=== PATIENT | female | born 1965 | race Caucasian/White ===

== ENCOUNTER 2016-12-07 06:07 | Day surgery (SDC) | payer BC, OTHER ==
[~2016-12-07 06:07] MED LIST: Lactated Ringers 1,000 ML IV SCH
[2016-12-07] MEDS ORDERED: Lactated Ringers 1,000 ML IV ONE (07:38)
[2016-12-07] MEDS ORDERED: DIPRIVAN 200 MG/20 ML IV ONE (08:00)
[2016-12-07] MEDS ORDERED: Versed 2 MG/2 ML Injection IV ONE (08:00)
[2016-12-07] MEDS ORDERED: SUBLIMAZE 100 MCG/2 ML IV ONE (08:00)
[2016-12-07 08:44] VITALS: BP 115/79; PULSE 63; O2SAT 98
--- NOTE | 2016-12-07 08:48 | OP ---
SURGERY DATE/TIME: 12/07/2016 0655 PREOPERATIVE DIAGNOSES: 1) Elevated sedimentation rate. 2) Elevated CRP level. POSTOPERATIVE DIAGNOSIS: Small polyp in the transverse colon. PROCEDURE: Colonoscopy with biopsy. SURGEON: Dr. Haile. ANESTHESIA: MAC. Medications given by anesthesia department. HISTORY: The patient is a 51 year-old white female who presents now for colonoscopic evaluation. The patient was felt the need to have the evaluation due to elevation in her sedimentation rate and CRP level which have been unexplained thus far. The patient is nearly 52 and due for a screening colonoscopy soon anyway. The patient was appraised of the risks of the procedure including the risk of perforation, phlebitis, untoward reaction to medication, bleeding, and missed lesions. The patient verbalized her understanding and desired to have the procedure performed. DESCRIPTION OF PROCEDURE: The patient was given the medications by the anesthesia department. She had continuous pulse oximetry, ECG monitoring, intermittent blood pressure monitoring, and tidal CO2 monitoring during the examination. She was placed in the left lateral decubitus position. A digital rectal examination was performed and revealed normal anal sphincter tone and no masses. The flexible Olympus pediatric colonoscope was used to intubate the rectum. A view of the colon was developed sequentially to the ascending colon. We were unable completely evaluate the cecum due to technical difficulties. Upon insertion and withdrawal there was noted a small polyp in the transverse colon which was biopsied twice with cold biopsy forceps to rule out any adenomatous change. No additional mucosal lesions were encountered. The scope was removed from the patient who tolerated the procedure well and was sent back to OP recovery in good condition. The prep was noted to be fair.
== END 2016-12-07 08:48 | disposition home or self-care (01) ==
LOC: SDC 06:07
PROVIDERS: ATTEND Family Medicine
PROC: 0DBL8ZX Excision of Transverse Colon, Via Natural or Artificial Opening Endoscopic, Diagnostic (ICD-10-PCS; principal; 2016-12-07)
DX: R70.0 Elevated erythrocyte sedimentation rate (principal); R79.82 Elevated C-reactive protein (CRP); D12.3 Benign neoplasm of transverse colon; I10 Essential (primary) hypertension; K21.9 Gastro-esophageal reflux disease without esophagitis
CPT/HCPCS: 00810; 36415; 88305; J2250; J2704; J3010

== ENCOUNTER 2020-02-15 15:49 | Emergency (ER) | payer MEDICARE ==
--- NOTE | 2020-02-15 15:58 | ERPHSYRPT ---
- History of Present Illness Time Seen by Provider: 02/15/20 15:58 Source: patient, family Exam Limitations: no limitations Physician History: This is a 55-year-old obese female with coronary artery disease and presents with 2-day history of coughing. She has been treated with an antibiotic and steroid as an outpatient 1 week ago followed by a change in her antibiotics and more steroids. Patient has albuterol nebulizer treatments at home. A chest x- ray was performed 5 days ago. Patient was on the impression she had a pneumonia but the x-ray was read by radiology and it is not a definite pneumonia. It was read as could not be excluded. Patient symptomatically has not improved despite the antibiotics and steroid treatments. Is allergic to iodinated contrast media. Patient first was treated with cefdinir and secondly she completed treatment with Augmentin. Timing/Duration: week(s) (2) Activities at Onset: none Severity of Dyspnea-Max: moderate Severity of Dyspnea-Current: moderate Possible Cause: occasional episodes Modifying Factors: Improves With: coughing Associated Symptoms: cough, No chest pain/discomfort Allergies/Adverse Reactions: acetaminophen [From Vicodin] Allergy (Verified 02/15/20 15:55) hydrocodone [From Vicodin] Allergy (Verified 02/15/20 15:55) Iodinated Contrast Media [Iodinated Contrast Media - IV Dye] Allergy (Verified 02/15/20 15:55) orphenadrine [From Norflex] Allergy (Verified 02/15/20 15:55) tramadol Allergy (Verified 02/15/20 15:55) Home Medications: Aspirin 81 mg PO DAILY 11/07/16 [History] Duloxetine HCl [Cymbalta] 120 mg PO DAILY 11/07/16 [History] Metoprolol Tartrate 50 mg PO BID 11/07/16 [History] Pantoprazole Sodium [Protonix] 40 mg PO DAILY 11/07/16 [History] Bupropion HCl [Bupropion Xl] 300 mg PO DAILY 02/15/20 [History] Buspirone HCl [Buspar] 15 mg PO BID 02/15/20 [History] Metformin HCl Xr 500 mg [Glucophage XR 500 MG] 500 mg PO BID 02/15/20 [ History] Tizanidine HCl 4 mg [Zanaflex 4 MG] 4 mg PO DAILY 02/15/20 [History] clonazePAM [Clonazepam] 1 mg PO BID 02/15/20 [History] Hx Tetanus, Diphtheria Vaccination/Date Given: No Hx Influenza Vaccination/Date Given: No Hx Pneumococcal Vaccination/Date Given: No - Review of Systems Constitutional: No Symptoms Eyes: No Symptoms Ears, Nose, & Throat: No Symptoms Respiratory: Cough, Dyspnea, No Stridor, No Wheezing Cardiac: No Symptoms Abdominal/Gastrointestinal: No Symptoms Genitourinary Symptoms: No Symptoms Musculoskeletal: No Symptoms Skin: No Symptoms Neurological: No Symptoms Psychological: No Symptoms Endocrine: No Symptoms Hematologic/Lymphatic: No Symptoms Immunological/Allergic: No Symptoms All Other Systems: Reviewed and Negative - Past Medical History Pertinent Past Medical History: Yes Neurological History: No Pertinent History ENT History: Other Cardiac History: High Cholesterol Respiratory History: No Pertinent History Endocrine Medical History: Diabetes Type II Musculoskeletal History: Arthritis GI Medical History: GERD History: No Pertinent History Psycho-Social History: Anxiety, Depression Female Reproductive Disorders: No Pertinent History Other Medical History: L carpal tunnel - Past Surgical History Past Surgical History: Yes Neuro Surgical History: No Pertinent History Cardiac: Other Respiratory: No Pertinent History Gastrointestinal: Cholecystectomy, Other Genitourinary: Other Musculoskeletal: No Pertinent History Female Surgical History: Lumpectomy Other Surgical History: pt states she has had an ablation to her heart for an arrhythmia, pt did not know what kind, but states it has fixed the problem., and a thermal ablation. she has had ureter surgery ( she states it was to narrow ). - Social History Smoking Status: Never smoker Exposure to second hand smoke: No Drug Use: none Patient Lives Alone: No - Nursing Vital Signs Nursing Vital Signs: Initial Vital Signs Temperature 98.1 F 02/15/20 15:56 Pulse Rate 81 02/15/20 15:56 Respiratory Rate 18 02/15/20 15:56 Blood Pressure 100/60 02/15/20 15:56 O2 Sat by Pulse Oximetry 96 02/15/20 15:56 Pain Scale Pain Intensity 0 - Physical Exam General Appearance: mild distress, alert, anxiety, obese Eye Exam: PERRL/EOMI, No eyes nml inspection Ears, Nose, Throat Exam: hearing grossly normal, normal ENT inspection Neck Exam: normal inspection, non-tender, supple, full range of motion Respiratory Exam: normal breath sounds, lungs clear, airway intact, No chest tenderness, No respiratory distress Cardiovascular/Chest Exam: normal heart sounds, regular rate/rhythm Abdominal/Gastrointestinal Exam: soft, normal bowel sounds, No tenderness Rectal Exam: not done Extremity Exam: non-tender, normal range of motion, normal inspection Neurologic Exam: alert, oriented x 3, cooperative, airport operations coordinator II-XII nml as tested Skin Exam: normal color, warm, dry Lymphatic Exam: No adenopathy SpO2 Interpretation: normal O2 Delivery: Room Air - Course Nursing assessment & vital signs reviewed: Yes Ordered Tests: Active Orders 24 hr Category Date Time Status Ethanol Quality Leader STAT Care 02/15/20 16:27 Active EKG-ER Only STAT Care 02/15/20 16:26 Active IV Insertion STAT Care 02/15/20 16:26 Active Pulse Oximetry (ED) STAT Care 02/15/20 16:26 Active CHEST 1 VIEW (PORTABLE) Stat Exams 02/15/20 16:27 Completed CBC W DIFF Stat Lab 02/15/20 16:45 Completed CMP Stat Lab 02/15/20 16:45 Completed D-DIMER QUANTITATIVE Stat Lab 02/15/20 17:25 Completed Lactic Acid Stat Lab 02/15/20 16:57 Completed Manual Differential NC Stat Lab 02/15/20 16:45 Completed NT PRO BNP Stat Lab 02/15/20 16:45 Completed TROPONIN Q3H Lab 02/15/20 16:45 Completed TROPONIN Q3H Lab 02/15/20 19:30 Ordered TROPONIN Q3H Lab 02/15/20 22:30 Ordered TROPONIN Q3H Lab 02/16/20 01:30 Ordered TROPONIN Q3H Lab 02/16/20 04:30 Ordered Peak Expiratory Flow Rate ONCE RT 02/15/20 16:48 Active Respiratory Therapy Assessment DAILY RT 02/15/20 16:48 Active Medication Summary Generic Name Dose Route Start Last Admin Trade Name Freq PRN Reason Stop Dose Admin Levofloxacin/Dextrose 500 mg in 100 mls @ 100 mls/hr 02/15/20 18:10 Levofloxacin 500mg/100ml D5w IV 02/15/20 19:09 STAT STA Discontinued Medications Generic Name Dose Route Start Last Admin Trade Name Freq PRN Reason Stop Dose Admin Hydrocodone Bitart/Acetaminophen 10 ml 02/15/20 18:12 Hydrocodone-Acetamin 2.5-108/5 Ml Solution PO 02/15/20 18:13 STAT STA Albuterol Sulfate 2.5 mg 02/15/20 16:26 02/15/20 16:42 Proventil 2.5 Mg/3 Ml Neb IH 02/15/20 16:27 2.5 mg STAT ONE Administration Albuterol Sulfate Confirm 02/15/20 16:40 Proventil 2.5 Mg/3 Ml Neb Administered 02/15/20 16:41 Dose 2.5 mg IH .STK-MED ONE Fluconazole 150 mg 02/15/20 18:11 Diflucan 100 Mg PO 02/15/20 18:12 ONCE ONE Methylprednisolone Sodium Succinate 125 mg 02/15/20 16:26 02/15/20 16:35 Solu-Medrol 125 Mg IV 02/15/20 16:27 125 mg STAT ONE Administration Methylprednisolone Sodium Succinate Confirm 02/15/20 16:34 Solu-Medrol 125 Mg Administered 02/15/20 16:35 Dose 125 mg .ROUTE .STK-MED ONE Lab/Rad Data: Laboratory Result Diagrams 02/15/20 16:45 02/15/20 16:45 Laboratory Results 02/15/20 02/15/20 02/15/20 Range/Units 17:25 16:57 16:45 WBC (4.0-10.5) K/mm3 RBC (4.1-5.4) M/mm3 Hgb (12.0-16.0) gm/dl Hct (35-47) % MCV (78-100) fl MCH (26-32) pg MCHC (32-36) g/dl RDW (11.5-14.0) % Plt Count (150-450) K/mm3 MPV (7.5-11.0) fl D-Dimer 358 (215-500) ng/mL Sodium (137-145) mmol/L Potassium (3.5-5.1) mmol/L Chloride (98-107) mmol/L Carbon Dioxide (22-30) mmol/L Anion Gap (5-15) MEQ/L BUN (7-17) mg/dL Creatinine (0.52-1.04) mg/dL Estimated GFR ML/MIN Glucose (74-106) mg/dL Lactic Acid 1.9 (0.4-2.0) Calcium (8.4-10.2) mg/dL Total Bilirubin (0.2-1.3) mg/dL AST (14-36) U/L ALT (0-35) U/L Alkaline Phosphatase (38-126) U/L Troponin I (0.000-0.034) ng/mL NT-Pro-B Natriuret Pep (0-900) pg/mL Serum Total Protein (6.3-8.2) g/dL Albumin (3.5-5.0) g/dL Influenza Type A Ag NEGATIVE (NEGATIVE) Influenza Type B Ag NEGATIVE (NEGATIVE) RSV (PCR) NEGATIVE (Negative) 02/15/20 02/15/20 02/15/20 Range/Units 16:45 16:45 16:45 WBC 18.7 H (4.0-10.5) K/mm3 RBC 5.14 (4.1-5.4) M/mm3 Hgb 13.8 (12.0-16.0) gm/dl Hct 42.7 (35-47) % MCV 83.1 (78-100) fl MCH 26.8 (26-32) pg MCHC 32.3 (32-36) g/dl RDW 15.7 H (11.5-14.0) % Plt Count 379 (150-450) K/mm3 MPV 9.5 (7.5-11.0) fl D-Dimer (215-500) ng/mL Sodium 142 (137-145) mmol/L Potassium 4.7 (3.5-5.1) mmol/L Chloride 102 (98-107) mmol/L Carbon Dioxide 30 (22-30) mmol/L Anion Gap 13.9 (5-15) MEQ/L BUN 24 H (7-17) mg/dL Creatinine 1.07 H (0.52-1.04) mg/dL Estimated GFR 57.0 ML/MIN Glucose 132 H (74-106) mg/dL Lactic Acid (0.4-2.0) Calcium 9.2 (8.4-10.2) mg/dL Total Bilirubin 0.40 (0.2-1.3) mg/dL AST 22 (14-36) U/L ALT 21 (0-35) U/L Alkaline Phosphatase 108 (38-126) U/L Troponin I < 0.012 (0.000-0.034) ng/mL NT-Pro-B Natriuret Pep 46.0 (0-900) pg/mL Serum Total Protein 8.0 (6.3-8.2) g/dL Albumin 4.3 (3.5-5.0) g/dL Influenza Type A Ag (NEGATIVE) Influenza Type B Ag (NEGATIVE) RSV (PCR) (Negative) - Progress Progress: improved, re-examined Air Movement: good Progress Note: 02/15/20 18:15 Medical decision making: This patient states that her symptoms have improved. She states she has 1 day of Augmentin antibiotic left. Her chest x-ray does not show any acute infiltrate but a lingular atelectasis is present. She does have a elevated white count but this may be secondary to 2 weeks of steroid use. She is afebrile. Her lactic acid is normal. Patient's troponin, d-dimer and BNP are all within normal limits. Patient's viral screens are also negative. Our plan for her is to stop the Augmentin, changed to antibiotic of Levaquin. She is to continue her steroid as prescribed as well as her nebulizer treatments every 4 hours while awake at home. We will provide the patient with Diflucan here in the emergency department x1 dose. She will receive Lortab elixir. The patient is not allergic to acetaminophen nor is she allergic to hydrocodone. The hydrocodone makes her little jittery. It is not a true allergy. Patient will get a prescription for Levaquin for home and we will provide her a prescription for Lortab elixir at home. Blood Culture(s) Obtained: No Antibiotics given: Yes Counseled pt/family regarding: lab results, diagnosis, need for follow-up, rad results - Departure Departure Disposition: Home Clinical Impression: Bronchitis Condition: Stable Critical Care Time: No Referrals: KAYLYN REYNA [Primary Care Provider] - Additional Instructions: Plenty of fluids. Avoid smoke inhalation of any kind. Stop your Augmentin antibiotic. Continue your nebulizer treatments at home every 4 hours while awake. Follow-up with your primary care physician for further management. Return to the emergency department if your symptoms worsen Prescriptions: Hydrocodone Bit/Acetaminophen [Hydrocodone-Acetaminophen Soln] 10 ml PO Q6H # 120 ml Levofloxacin [Levaquin 500 MG Tablet] 500 mg PO DAILY #7 tablet
[2020-02-15] MEDS ORDERED: PROVENTIL 2.5 MG/3 ML NEB IH ONE ×2 (16:26→16:40)
[2020-02-15] MEDS ORDERED: solu-MEDROL 125 MG IV ONE (16:26)
[2020-02-15] MEDS ORDERED: solu-MEDROL 125 MG ONE (16:34)
--- NOTE | 2020-02-15 16:59 | XRAY ---
Indication: Short of breath. Pneumonia. Comparison: February 10, 2020. Portable chest now demonstrates minimal lingula discoid atelectasis. Remaining heart and lungs normal.
[2020-02-15 17:01] LABS: Hematocrit 42.7 % (35-47); Hemoglobin 13.8 gm/dl (12.0-16.0); Mean Cell Volume 83.1 fl (78-100); Mean Corpuscular Hemoglobin 26.8 pg (26-32); Mean Corpuscular Hgb Concent. 32.3 g/dl (32-36); Mean Platelet Volume 9.5 fl (7.5-11.0); Platelet Count 379 K/mm3 (150-450); Red Blood Count 5.14 M/mm3 (4.1-5.4); Red Cell Distribution Width 15.7 % (11.5-14.0); White Blood Count 18.7 K/mm3 (4.0-10.5)
[2020-02-15 17:23] LABS: INFLUENZA A NEGATIVE (NEGATIVE); INFLUENZA B NEGATIVE (NEGATIVE); RESPIRATORY SYNCTIAL VIRUS NEGATIVE (Negative)
[2020-02-15 17:43] LABS: ALBUMIN 4.3 g/dL (3.5-5.0); ANION GAP 13.9 MEQ/L (5-15); BILIRUBIN,TOTAL 0.4 mg/dL (0.2-1.3); Calcium 9.2 mg/dL (8.4-10.2); Creatinine 1 1.07 mg/dL (0.52-1.04); Potassium 4.7 mmol/L (3.5-5.1)
[2020-02-15] MEDS ORDERED: Levofloxacin 500MG/100ML D5W 500 MG/100 ML BAG IV STA (18:10)
[2020-02-15] MEDS ORDERED: Diflucan 100 MG PO ONE (18:11)
[2020-02-15] MEDS ORDERED: HYDROCODONE-ACETAMIN 2.5-108/5 ML SOLUTION PO STA (18:12)
[2020-02-15] MEDS ORDERED: Levofloxacin 500MG/100ML D5W 500 MG/100 ML BAG IV ONE (18:22)
[2020-02-15] MEDS ORDERED: HYDROCODONE-ACETAMIN 2.5-108/5 ML SOLUTION ONE (18:22)
[2020-02-15 19:23] VITALS: O2SAT 95
[2020-02-15 19:36] VITALS: BP 120/67; PULSE 72
[2020-02-15 19:56] LABS: Eosinophil 1 % (0.00-3.0); Lymphocytes 13 % (24-44); Monocyte 6 % (0.0-12.0); Neutrophils 80 % (36.0-66.0); Platelet Estimate NORMAL (NORMAL); Total Cells Counted 100
== END 2020-02-15 19:42 | disposition home or self-care (01) ==
LOC: ED 15:49
DX: J40 Bronchitis, not specified as acute or chronic (principal); I25.10 Atherosclerotic heart disease of native coronary artery without angina pectoris; R05 Cough; E78.00 Pure hypercholesterolemia, unspecified; E11.9 Type 2 diabetes mellitus without complications; Z79.899 Other long term (current) drug therapy; Z79.84 Long term (current) use of oral hypoglycemic drugs
CPT/HCPCS: 36000; 36415; 71045; 80053; 83605; 83880; 84484; 85025; 85379; 87631; 93005; 93041; 94150; 94640; 94760; 96360; 96365; 96374; 99284; J1956; J2930; J7609; A9270-GY

== ENCOUNTER 2020-05-24 14:07 | Emergency (ER) | payer MEDICARE ==
[2020-05-24] MEDS ORDERED: CORTISPORIN EAR DROPS 10 ML SUSPENSION OT STA (14:40)
--- NOTE | 2020-05-24 14:40 | ERPHSYRPT ---
- History of Present Illness Time Seen by Provider: 05/24/20 14:20 Source: patient Patient Subjective Stated Complaint: ear ache Triage Nursing Assessment: pt to ED c/o L earache x 1 week. was seen at PCP , given abx and steriod shot with no relief. rates 9/10 pain that radiatesdown and up ear with opening mouth. mild redness noted. denies drainage. states she normally wears hearing aids at home but could not today due to pain. Physician History: Patient is a 55-year-old female presents to our ED for evaluation of left ear pain. Patient has been experiencing ear pain for approximately 1 week. Patient is hearing impaired and requires hearing aids. Patient went to her primary care doctor's office on . Patient was prescribed Omnicef and prednisone. Patient has been taking medication as prescribed. In spite patient is still experiencing pain. Pain described as an ache that is primarily localized to the external ear. Pain is along the external ear canal. No mastoid tenderness. No nausea or vomiting. No diarrhea. No headache. No change in vision. Patient voices no other complaints at this time. Timing/Duration: week(s) (1), gradual onset Severity: moderate Modifying Factors: Improves With: nothing Associated Symptoms: No nausea, No vomiting Allergies/Adverse Reactions: acetaminophen [From Vicodin] Allergy (Verified 05/24/20 14:22) hydrocodone [From Vicodin] Allergy (Verified 05/24/20 14:22) Iodinated Contrast Media [Iodinated Contrast Media - IV Dye] Allergy (Verified 05/24/20 14:22) orphenadrine [From Norflex] Allergy (Verified 05/24/20 14:22) tramadol Allergy (Verified 05/24/20 14:22) Home Medications: Aspirin 81 mg PO DAILY 11/07/16 [History] Duloxetine HCl [Cymbalta] 120 mg PO DAILY 11/07/16 [History] Metoprolol Tartrate 50 mg PO BID 11/07/16 [History] Pantoprazole Sodium [Protonix] 40 mg PO DAILY 11/07/16 [History] Bupropion HCl [Bupropion Xl] 300 mg PO DAILY 02/15/20 [History] Tizanidine HCl 4 mg [Zanaflex 4 MG] 4 mg PO DAILY 02/15/20 [History] Cariprazine HCl [Vraylar] 1.5 mg PO DAILY 05/24/20 [History] Cefdinir 300 mg PO DAILY 05/24/20 [History] Diazepam 5 mg [Valium 5 MG] 5 mg PO Q12H PRN PRN 05/24/20 [History] Ferrous Sulfate 325 mg [Feosol 325 mg] 325 mg PO DAILY 05/24/20 [History] Fluticasone Propionate [Flonase NASAL] 16 gm NS Q12H PRN PRN 05/24/20 [History] Prednisone 20 mg [Deltasone 20 mg] 20 mg PO DAILY 05/24/20 [History] Hx Tetanus, Diphtheria Vaccination/Date Given: Yes Hx Influenza Vaccination/Date Given: Yes Hx Pneumococcal Vaccination/Date Given: No Travel Risk - International Travel Have you traveled outside of the country in past 3 weeks: No - Coronavirus Screening Are you exhibiting any of the following symptoms?: No Close contact with a COVID-19 positive Pt in past 14-21 Days: No - Review of Systems Constitutional: No Symptoms, No Fever, No Chills Eyes: No Symptoms Ears, Nose, & Throat: No Symptoms Respiratory: No Symptoms, No Cough, No Dyspnea Cardiac: No Symptoms, No Chest Pain, No Edema, No Syncope Abdominal/Gastrointestinal: No Symptoms, No Abdominal Pain, No Nausea, No Vo miting, No Diarrhea Genitourinary Symptoms: No Symptoms, No Dysuria Musculoskeletal: No Symptoms, No Back Pain, No Neck Pain Skin: No Symptoms, No Rash Neurological: No Symptoms, No Dizziness, No Focal Weakness, No Sensory Changes Psychological: No Symptoms Endocrine: No Symptoms Hematologic/Lymphatic: No Symptoms Immunological/Allergic: No Symptoms All Other Systems: Reviewed and Negative - Past Medical History Pertinent Past Medical History: Yes Neurological History: No Pertinent History ENT History: Other Cardiac History: High Cholesterol Respiratory History: No Pertinent History Endocrine Medical History: Diabetes Type II Musculoskeletal History: Arthritis, Fibromyalgia GI Medical History: GERD History: No Pertinent History Psycho-Social History: Anxiety, Depression Female Reproductive Disorders: No Pertinent History Other Medical History: bilateral carpal tunnel - Past Surgical History Past Surgical History: Yes Neuro Surgical History: No Pertinent History Cardiac: Other Respiratory: No Pertinent History Gastrointestinal: Cholecystectomy, Other Genitourinary: Other Musculoskeletal: No Pertinent History Female Surgical History: Lumpectomy Other Surgical History: pt states she has had an ablation to her heart for an arrhythmia, pt did not know what kind, but states it has fixed the problem., and a thermal ablation. she has had ureter surgery ( she states it was to narrow). - Social History Smoking Status: Never smoker Exposure to second hand smoke: No Drug Use: none Patient Lives Alone: No - Female History Hx Now: No - Nursing Vital Signs Nursing Vital Signs: Initial Vital Signs Temperature 98.3 F 05/24/20 14:14 Pulse Rate 74 05/24/20 14:14 Respiratory Rate 16 05/24/20 14:14 Blood Pressure 132/65 05/24/20 14:14 O2 Sat by Pulse Oximetry 97 05/24/20 14:14 Pain Scale Pain Intensity 9 - Physical Exam General Appearance: no apparent distress, alert Eye Exam: PERRL/EOMI, eyes nml inspection Ears, Nose, Throat Exam: normal ENT inspection, TMs normal, pharynx normal, moist mucous membranes, other (Otitis externa left ear.) Neck Exam: normal inspection, non-tender, supple, full range of motion Respiratory Exam: normal breath sounds, lungs clear, No respiratory distress Cardiovascular Exam: regular rate/rhythm, normal heart sounds, normal peripheral pulses Gastrointestinal/Abdomen Exam: soft, normal bowel sounds, No tenderness, No mass Back Exam: normal inspection, normal range of motion, No CVA tenderness, No vertebral tenderness Extremity Exam: normal inspection, normal range of motion, pelvis stable Neurologic Exam: alert, oriented x 3, cooperative, normal mood/affect, nml cerebellar function, nml station & gait, sensation nml, No motor deficits Skin Exam: normal color, warm, dry, No rash Lymphatic Exam: No adenopathy SpO2 Interpretation: normal SpO2: 97 O2 Delivery: Room Air - Course Nursing assessment & vital signs reviewed: Yes Ordered Tests: Medication Summary Discontinued Medications Generic Name Dose Route Start Last Admin Trade Name Freq PRN Reason Stop Dose Admin Neomycin/Polymyxin/Hydrocortisone 1 ml 05/24/20 14:40 05/24/20 14:45 Cortisporin Ear Drops 10 Ml Suspension OT 05/24/20 14:41 1 ml ONCE STA Administration Neomycin/Polymyxin/Hydrocortisone Confirm 05/24/20 14:43 Cortisporin Ear Drops 10 Ml Suspension Administered 05/24/20 14:44 Dose 10 ml OT .STK-MED ONE - Progress Progress: improved Progress Note: 05/24/20 14:46 Patient reassessed. Pain improved. It appears that patient's pain may be due to otitis externa. No mastoid tenderness. Her Omnicef and prednisone as indicated per her primary care doctor. We will add Cortisporin to her regimen as well. Patient to follow-up with her primary care doctor within 48 hours for reevaluation. Counseled pt/family regarding: diagnosis, need for follow-up - Departure Departure Disposition: Home Clinical Impression: Otitis externa, Otalgia, left ear Condition: Stable Critical Care Time: No Referrals: KAYLYN REYNA [Primary Care Provider] - Additional Instructions: Discharge/Care Plan ARITAGENE TRUNG was seen on 05/24/20 in the Emergency Room. The patient was counseled regarding Diagnosis,Lab results, Imaging studies, need for follow up and when to return to the Emergency Room. Prescriptions given: Discharge Note I have spoken with the patient and/or caregivers. I have explained the patient's condition, diagnosis and treatment plan based on the information available to me at this time. I have answered the patient's and/or caregiver's questions and addressed any concerns. The patient and/or caregivers have as good understanding of the patient's diagnosis, condition and treatment plan as can be expected at this point. The vital signs have been stable. The patient's condition is stable and appropriate for discharge from the emergency department. The patient will pursue further outpatient evaluation with the primary care physician or other designated or consulting physician as outlined in the discharge instructions. The patient and/or caregivers are agreeable to this plan of care and follow-up instructions have been explained in detail. The patient and/or caregivers have received these instruction. The patient/and or caregivers are aware that any significant change in condition or worsening of symptoms should prompt an immediate return to this or the closest emergency department or call 911.
[2020-05-24] MEDS ORDERED: CORTISPORIN EAR DROPS 10 ML SUSPENSION OT ONE (14:43)
[2020-05-24 15:23] VITALS: BP 114/82; PULSE 88
[2020-05-24 15:24] VITALS: O2SAT 97
== END 2020-05-24 15:31 | disposition home or self-care (01) ==
LOC: ED 14:07
DX: H60.92 Unspecified otitis externa, left ear (principal); H92.02 Otalgia, left ear
CPT/HCPCS: 99283; A9270-GY

== ENCOUNTER 2020-11-07 11:17 | Emergency (ER) | payer MEDICARE ==
--- NOTE | 2020-11-07 12:41 | XRAY ---
Indication: Incisional pain and erythema. Status post bariatric surgery 1 week ago. Multiple contiguous axial images obtained through the abdomen and pelvis without contrast as ordered. Comparison: January 23, 2017. Lung bases demonstrates new mild dependent atelectasis. Posterior left gutter demonstrates stable 1.5 cm irregular noncalcified nodule favored to be benign given stability over the years. Inferior lingula demonstrates new 1.3 cm similar appearing irregular noncalcified nodule. Heart is not enlarged. There has been interval gastric bypass surgery. Left upper quadrant/left periumbilical abdominal wall demonstrates new cutaneous/deep soft tissue induration with a few subcutaneous air bubbles all presumed postoperative. Also tiny right upper quadrant intra-abdominal air bubble also presumed postoperative. No suspicious fluid collection or ventral hernia. Noncontrasted stomach and bowel loops appear nonobstructed. No intra-abdominal/pelvic free fluid. Stable diffuse fatty liver, right kidney extrarenal pelvis, and cholecystectomy. Remaining liver, pancreas, spleen, adrenal glands, kidneys, ureters, bladder, uterus, and aorta appear unremarkable for noncontrast exam. Osseous structures intact. Impression: 1. Status post gastric bypass surgery with left upper quadrant/left periumbilical abdominal wall postsurgical changes. No walled off fluid collection/abscess. 2. Stable fatty liver. 3. New noncalcified irregular nodule in the inferior lingula. Finding is indeterminant but appears similar to the benign appearing left costophrenic angle nodule.
--- NOTE | 2020-11-07 12:54 | ERPHSYRPT ---
- History of Present Illness Time Seen by Provider: 11/07/20 11:30 Historian: patient Exam Limitations: physical impairment Patient Subjective Stated Complaint: here for have abd looked at Triage Nursing Assessment: pt alert, walked . resp easy, skin w/d/p. has 4 incision to abd, no drainage, one incision with reddness at site, one incision with hardness at site, Physician History: Patient is a 55-year-old female 1 week post laparoscopic gastric bypass presents to our ED for evaluation of one of the post operative laparoscopic trocar sites. No drainage. No fever. Patient states the area is tender and firm more so than the rest. Symptoms are mild to moderate in intensity. The area is tender to palpation. Patient also advised that she ran out of her Percocets. No associated trauma. No nausea or vomiting. No diarrhea. Patient voices no other complaints or concerns at this time. Timing/Duration: yesterday Activities at Onset: none Quality: aching Abdominal Pain Onset Location: LLQ Pain Radiation: no radiation Severity of Pain-Max: moderate Severity of Pain-Current: mild Modifying Factors: Improves With: palpation Associated Symptoms: denies symptoms Previous symptoms: no prior history Allergies/Adverse Reactions: acetaminophen [From Vicodin] Allergy (Verified 11/07/20 11:34) hydrocodone [From Vicodin] Allergy (Verified 11/07/20 11:34) Iodinated Contrast Media [Iodinated Contrast Media - IV Dye] Allergy (Verified 11/07/20 11:34) orphenadrine [From Norflex] Allergy (Verified 11/07/20 11:34) tramadol Allergy (Verified 11/07/20 11:34) Home Medications: Aspirin 81 mg PO DAILY 11/07/16 [History] Duloxetine HCl [Cymbalta] 120 mg PO DAILY 11/07/16 [History] Metoprolol Tartrate 50 mg PO BID 11/07/16 [History] Pantoprazole Sodium [Protonix] 40 mg PO DAILY 11/07/16 [History] Bupropion HCl [Bupropion Xl] 300 mg PO DAILY 02/15/20 [History] Tizanidine HCl 4 mg [Zanaflex 4 MG] 4 mg PO DAILY 02/15/20 [History] Cariprazine HCl [Vraylar] 1.5 mg PO DAILY 05/24/20 [History] Cefdinir 300 mg PO DAILY 05/24/20 [History] Diazepam 5 mg [Valium 5 MG] 5 mg PO Q12H PRN PRN 05/24/20 [History] Ferrous Sulfate 325 mg [Feosol 325 mg] 325 mg PO DAILY 05/24/20 [History] Fluticasone Propionate [Flonase NASAL] 16 gm NS Q12H PRN PRN 05/24/20 [History] Prednisone 20 mg [Deltasone 20 mg] 20 mg PO DAILY 05/24/20 [History] Hx Tetanus, Diphtheria Vaccination/Date Given: Yes Hx Influenza Vaccination/Date Given: Yes Hx Pneumococcal Vaccination/Date Given: No Travel Risk - International Travel Have you traveled outside of the country in past 3 weeks: No - Coronavirus Screening Are you exhibiting any of the following symptoms?: No Close contact with a COVID-19 positive Pt in past 14-21 Days: No - Review of Systems Constitutional: No Symptoms, No Fever, No Chills Eyes: No Symptoms Ears, Nose, & Throat: No Symptoms Respiratory: No Symptoms, No Cough, No Dyspnea Cardiac: No Symptoms, No Chest Pain, No Edema, No Syncope Abdominal/Gastrointestinal: No Symptoms, No Abdominal Pain, No Nausea, No Vomiting, No Diarrhea Genitourinary Symptoms: No Symptoms, No Dysuria Musculoskeletal: No Symptoms, No Back Pain, No Neck Pain Skin: No Symptoms, No Rash Neurological: No Symptoms, No Dizziness, No Focal Weakness, No Sensory Changes Psychological: No Symptoms Endocrine: No Symptoms Hematologic/Lymphatic: No Symptoms Immunological/Allergic: No Symptoms All Other Systems: Reviewed and Negative - Past Medical History Pertinent Past Medical History: Yes Neurological History: No Pertinent History ENT History: Other Cardiac History: High Cholesterol Respiratory History: No Pertinent History Endocrine Medical History: Diabetes Type II Musculoskeletal History: Arthritis, Fibromyalgia GI Medical History: GERD History: No Pertinent History Psycho-Social History: Anxiety, Depression Female Reproductive Disorders: No Pertinent History Other Medical History: bilateral carpal tunnel - Past Surgical History Past Surgical History: Yes Neuro Surgical History: No Pertinent History Cardiac: Other Respiratory: No Pertinent History Gastrointestinal: Cholecystectomy, Other Genitourinary: Other Musculoskeletal: No Pertinent History Female Surgical History: Lumpectomy Other Surgical History: pt states she has had an ablation to her heart for an arrhythmia, pt did not know what kind, but states it has fixed the problem., and a thermal ablation. she has had ureter surgery ( she states it was to narrow).gastric bypass 2019 - Social History Smoking Status: Never smoker Exposure to second hand smoke: No Drug Use: none Patient Lives Alone: No - Female History Hx Last Menstrual Period: post Hx Now: No - Nursing Vital Signs Nursing Vital Signs: Initial Vital Signs Temperature 98.4 F 11/07/20 11:19 Pulse Rate 91 H 11/07/20 11:19 Respiratory Rate 18 11/07/20 11:19 Blood Pressure 147/79 11/07/20 11:19 O2 Sat by Pulse Oximetry 98 11/07/20 11:19 Pain Scale Pain Intensity 8 - Physical Exam General Appearance: no apparent distress, alert Eye Exam: PERRL/EOMI, eyes nml inspection Ears, Nose, Throat Exam: normal ENT inspection, pharynx normal, moist mucous membranes Neck Exam: normal inspection, non-tender, supple, full range of motion Respiratory Exam: normal breath sounds, lungs clear, No respiratory distress Cardiovascular Exam: regular rate/rhythm, normal heart sounds Gastrointestinal/Abdomen Exam: soft, other (The left superior trocar site shows subcutaneous induration. No cellulitis. No drainage. The remainder of the abdominal exam is normal.), No tenderness, No mass Back Exam: normal inspection, normal range of motion, No CVA tenderness, No vertebral tenderness Extremity Exam: normal inspection, normal range of motion, pelvis stable Neurologic Exam: alert, oriented x 3, cooperative, normal mood/affect, sensation nml, No motor deficits Skin Exam: normal color, warm, dry SpO2 Interpretation: normal SpO2: 95 O2 Delivery: Room Air - Course Nursing assessment & vital signs reviewed: Yes - CT Exams Abdomen/Pelvis CT Interpretation: Tele-radiologist Report (Postoperative changes. Post gastric bypass surgery no walled off fluid collection or abscess. Stable fatty liver. Noncalcified irregular lung nodule. No acute intra-abdominal pathology.) Ordered Tests: Active Orders 24 hr Category Date Time Status ABDOMEN AND PELVIS W/0 CONTRAS [CT] Stat Exams 11/07/20 11:41 Completed - Progress Progress: improved Progress Note: 11/07/20 13:08 We called our patient's surgeon's office for an update. Number is [phone]. No one is immediately available however they will return call. We will give them an update when they return for phone call. Patient given Tylenol for pain control. Patient has multiple allergies but states that she has had Tylenol and does well with it. Patient voices no other complaints or concerns at this time. CT does not reveal infection or abscess at this time. No indication for further evaluation or intervention at this time. Will discharge home. Patient will call her surgeon's office upon arrival home as well. Counseled pt/family regarding: diagnosis, need for follow-up, rad results - Departure Departure Disposition: Home Clinical Impression: Surgical wound present, Lung nodule, Hepatic steatosis Condition: Stable Critical Care Time: No Referrals: KAYLYN REYNA [Primary Care Provider] - Additional Instructions: Discharge/Care Plan ARITAGENE TRUNG was seen on 11/07/20 in the Emergency Room. The patient was counseled regarding Diagnosis,Lab results, Imaging studies, need for follow up and when to return to the Emergency Room. Prescriptions given: Discharge Note I have spoken with the patient and/or caregivers. I have explained the patient's condition, diagnosis and treatment plan based on the information available to me at this time. I have answered the patient's and/or caregiver's questions and addressed any concerns. The patient and/or caregivers have as good understanding of the patient's diagnosis, condition and treatment plan as can be expected at this point. The vital signs have been stable. The patient's condition is stable and appropriate for discharge from the emergency department. The patient will pursue further outpatient evaluation with the primary care physician or other designated or consulting physician as outlined in the discharge instructions. The patient and/or caregivers are agreeable to this plan of care and follow-up instructions have been explained in detail. The patient and/or caregivers have received these instruction. The patient/and or caregivers are aware that any significant change in condition or worsening of symptoms should prompt an immediate return to this or the closest emergency department or call 911.
[2020-11-07] MEDS ORDERED: TYLENOL 325 MG PO STA (13:07)
[2020-11-07] MEDS ORDERED: TYLENOL 325 MG ONE (13:26)
[2020-11-07 13:33] VITALS: BP 110/72; PULSE 95; O2SAT 96
== END 2020-11-07 13:49 | disposition home or self-care (01) ==
LOC: ED 11:17
DX: Z04.89 Encounter for examination and observation for other specified reasons (principal); Z98.890 Other specified postprocedural states; R91.1 Solitary pulmonary nodule; K76.0 Fatty (change of) liver, not elsewhere classified; Z79.899 Other long term (current) drug therapy; E11.9 Type 2 diabetes mellitus without complications; K21.9 Gastro-esophageal reflux disease without esophagitis; M79.7 Fibromyalgia
CPT/HCPCS: 74176; 99284; A9270-GY

== ENCOUNTER 2021-01-01 10:53 | Emergency (ER) | payer MEDICARE ==
--- NOTE | 2021-01-01 11:22 | ERPHSYRPT ---
- History of Present Illness Time Seen by Provider: 01/01/21 11:17 Source: patient Exam Limitations: no limitations Patient Subjective Stated Complaint: body aches, SCOTT, fever, cough. tested yesterday Triage Nursing Assessment: . Physician History: Patient is 55-year-old female came to the emergency room with fever headache body ache chills sinus congestion for 1 day duration. Patient was complaining of fever with chills yesterday. Patient spouse has been tested positive for coronavirus 19 and she is in the hospital with Covid pneumonia. Patient was tested for coronavirus yesterday. Timing/Duration: yesterday Associated Symptoms: fever, headaches, malaise, weakness Allergies/Adverse Reactions: acetaminophen [From Vicodin] Allergy (Verified 11/07/20 11:34) hydrocodone [From Vicodin] Allergy (Verified 11/07/20 11:34) Iodinated Contrast Media [Iodinated Contrast Media - IV Dye] Allergy (Verified 11/07/20 11:34) orphenadrine [From Norflex] Allergy (Verified 11/07/20 11:34) tramadol Allergy (Verified 11/07/20 11:34) Home Medications: Aspirin 81 mg PO DAILY 11/07/16 [History] Duloxetine HCl [Cymbalta] 120 mg PO DAILY 11/07/16 [History] Metoprolol Tartrate 50 mg PO BID 11/07/16 [History] Pantoprazole Sodium [Protonix] 40 mg PO DAILY 11/07/16 [History] Tizanidine HCl 4 mg [Zanaflex 4 MG] 4 mg PO DAILY 02/15/20 [History] buPROPion HCL [Bupropion Xl] 300 mg PO DAILY 02/15/20 [History] Cariprazine HCl [Vraylar] 1.5 mg PO DAILY 05/24/20 [History] Cefdinir 300 mg PO DAILY 05/24/20 [History] Diazepam 5 mg [Valium 5 MG] 5 mg PO Q12H PRN PRN 05/24/20 [History] Ferrous Sulfate 325 mg [Feosol 325 mg] 325 mg PO DAILY 05/24/20 [History] Fluticasone Propionate [Flonase NASAL] 16 gm NS Q12H PRN PRN 05/24/20 [History] Prednisone 20 mg [Deltasone 20 mg] 20 mg PO DAILY 05/24/20 [History] Hx Tetanus, Diphtheria Vaccination/Date Given: Yes Hx Influenza Vaccination/Date Given: Yes Hx Pneumococcal Vaccination/Date Given: Yes Immunizations Up to Date: Yes Travel Risk - International Travel Have you traveled outside of the country in past 3 weeks: No - Coronavirus Screening Are you exhibiting any of the following symptoms?: Yes Close contact with a COVID-19 positive Pt in past 14-21 Days: Yes - Review of Systems Constitutional: Fever, Chills, Fatigue, Malaise Eyes: No Symptoms Ears, Nose, & Throat: No Symptoms Respiratory: Cough, No Dyspnea Cardiac: No Chest Pain, No Edema, No Syncope Abdominal/Gastrointestinal: No Abdominal Pain, No Nausea, No Vomiting, No Diarrhea Genitourinary Symptoms: No Dysuria Musculoskeletal: No Back Pain, No Neck Pain Skin: No Rash Neurological: No Dizziness, No Focal Weakness, No Sensory Changes Psychological: No Symptoms Endocrine: No Symptoms All Other Systems: Reviewed and Negative - Past Medical History Pertinent Past Medical History: Yes Neurological History: No Pertinent History ENT History: Other Cardiac History: High Cholesterol Respiratory History: No Pertinent History Endocrine Medical History: Diabetes Type II Musculoskeletal History: Arthritis, Fibromyalgia GI Medical History: GERD History: No Pertinent History Psycho-Social History: Anxiety, Depression Female Reproductive Disorders: No Pertinent History Other Medical History: bilateral carpal tunnel - Past Surgical History Past Surgical History: Yes Neuro Surgical History: No Pertinent History Cardiac: Other Respiratory: No Pertinent History Gastrointestinal: Cholecystectomy, Other Genitourinary: Other Musculoskeletal: No Pertinent History Female Surgical History: Lumpectomy Other Surgical History: pt states she has had an ablation to her heart for an arrhythmia, pt did not know what kind, but states it has fixed the problem., and a thermal ablation. she has had ureter surgery ( she states it was to narrow).gastric bypass Nov 01 2020 - Social History Smoking Status: Never smoker Exposure to second hand smoke: No Drug Use: none Patient Lives Alone: No - Nursing Vital Signs Nursing Vital Signs: Initial Vital Signs Temperature 98.5 F 01/01/21 10:57 Pulse Rate 62 01/01/21 10:57 Respiratory Rate 18 01/01/21 10:57 Blood Pressure 125/79 01/01/21 10:57 O2 Sat by Pulse Oximetry 96 01/31/21 10:57 Pain Scale Pain Intensity 6 - Physical Exam General Appearance: no apparent distress, alert Eye Exam: PERRL/EOMI, eyes nml inspection Ears, Nose, Throat Exam: normal ENT inspection, TMs normal, pharynx normal, moist mucous membranes Neck Exam: normal inspection, non-tender, supple, full range of motion Respiratory Exam: normal breath sounds, lungs clear, No respiratory distress Cardiovascular Exam: regular rate/rhythm, normal heart sounds, normal peripheral pulses Gastrointestinal/Abdomen Exam: soft, normal bowel sounds, No tenderness, No mass Back Exam: normal inspection, normal range of motion, No CVA tenderness, No vertebral tenderness Extremity Exam: normal inspection, normal range of motion, pelvis stable Neurologic Exam: alert, oriented x 3, cooperative, normal mood/affect, nml cerebellar function, nml station & gait, sensation nml, No motor deficits Skin Exam: normal color, warm, dry, No rash Lymphatic Exam: No adenopathy SpO2: 96 - Course Nursing assessment & vital signs reviewed: Yes - Radiology Exams Chest X-ray Interpretation: Reviewed by me, Negative, No Pneumonia Ordered Tests: Active Orders 24 hr Category Date Time Status CHEST 1 VIEW (PORTABLE) Stat Exams 01/01/21 11:04 Taken CBC W DIFF Stat Lab 01/01/21 11:24 Completed CMP Stat Lab 01/01/21 11:24 Completed Lab/Rad Data: Laboratory Result Diagrams 01/01/21 11:24 01/01/21 11:24 Laboratory Results 01/01/21 01/01/21 Range/Units 11:24 11:24 WBC 3.7 L (4.0-10.5) K/mm3 RBC 4.87 (4.1-5.4) M/mm3 Hgb 13.4 (12.0-16.0) gm/dl Hct 41.7 (35-47) % MCV 85.6 (78-100) fl MCH 27.5 (26-32) pg MCHC 32.1 (32-36) g/dl RDW 15.5 H (11.5-14.0) % Plt Count 230 (150-450) K/mm3 MPV 10.6 (7.5-11.0) fl Gran % 41.4 (36.0-66.0) % Eos # (Auto) 0.01 (0-0.5) Absolute Lymphs (auto) 1.44 (1.0-4.6) Absolute Monos (auto) 0.73 (0.0-1.3) Lymphocytes % 38.5 (24.0-44.0) % Monocytes % 19.5 H (0.0-12.0) % Eosinophils % 0.3 (0.00-5.0) % Basophils % 0.3 (0.0-0.4) % Absolute Granulocytes 1.55 (1.4-6.9) Basophils # 0.01 (0-0.4) Sodium 138 (137-145) mmol/L Potassium 4.0 (3.5-5.1) mmol/L Chloride 104 (98-107) mmol/L Carbon Dioxide 25 (22-30) mmol/L Anion Gap 12.9 (5-15) MEQ/L BUN 13 (7-17) mg/dL Creatinine 0.70 (0.52-1.04) mg/dL Estimated GFR > 60.0 ML/MIN Glucose 88 (74-106) mg/dL Calcium 9.5 (8.4-10.2) mg/dL Total Bilirubin 0.30 (0.2-1.3) mg/dL AST 42 H (14-36) U/L ALT 38 H (0-35) U/L Alkaline Phosphatase 116 (38-126) U/L Serum Total Protein 7.6 (6.3-8.2) g/dL Albumin 4.1 (3.5-5.0) g/dL - Progress Progress: unchanged Counseled pt/family regarding: lab results, diagnosis, need for follow-up, rad results - Departure Departure Disposition: Home Clinical Impression: Suspected COVID-19 virus infection Condition: Stable Critical Care Time: No Referrals: KAYLYN REYNA [Primary Care Provider] - Instructions: Coronavirus Disease 2019 (COVID-19) (DC) Prescriptions: Methylprednisolone Packet [Medrol Dosepack] 4 mg PO UD #30 packet Azithromycin [Zithromax] 250 mg PO UD 5 Days #6 tablet
[2021-01-01 11:37] LABS: Absolute Neutrophil Ct (ANC) 1.55 (1.4-6.9); BASOPHIL % 0.3 % (0.0-0.4); Basophil (Absolute #) 0.01 (0-0.4); Eosinophil % 0.3 % (0.00-5.0); Eosinophil (Absolute #) 0.01 (0-0.5); Hematocrit 41.7 % (35-47); Hemoglobin 13.4 gm/dl (12.0-16.0); Lymphocyte (Absolute #) 1.44 (1.0-4.6); Lymphocytes % 38.5 % (24.0-44.0); Mean Cell Volume 85.6 fl (78-100); Mean Corpuscular Hemoglobin 27.5 pg (26-32); Mean Corpuscular Hgb Concent. 32.1 g/dl (32-36); Mean Platelet Volume 10.6 fl (7.5-11.0); Monocyte (Absolute #) 0.73 (0.0-1.3); Monocytes % 19.5 % (0.0-12.0); Neutrophil % 41.4 % (36.0-66.0); Platelet Count 230 K/mm3 (150-450); Red Blood Count 4.87 M/mm3 (4.1-5.4); Red Cell Distribution Width 15.5 % (11.5-14.0); White Blood Count 3.7 K/mm3 (4.0-10.5)
[2021-01-01 11:42] LABS: ALBUMIN 4.1 g/dL (3.5-5.0); ALKALINE PHOSPHATASE 116 U/L (38-126); ANION GAP 12.9 MEQ/L (5-15); BLOOD UREA NITROGEN 13 mg/dL (7-17); CHLORIDE 104 mmol/L (98-107); Calcium 9.5 mg/dL (8.4-10.2); Carbon Dioxide 25 mmol/L (22-30); EST GLOMERULAR FILTRATION RATE > 60.0 ML/MIN; Glucose 88 mg/dL (74-106); SGOT/AST 42 U/L (14-36); SGPT/ALT 38 U/L (0-35); SODIUM 138 mmol/L (137-145); Total Protein 7.6 g/dL (6.3-8.2)
[2021-01-01 11:53] VITALS: BP 119/70; PULSE 55; O2SAT 94
--- NOTE | 2021-01-01 16:44 | XRAY ---
Indication: Cough, congestion, short of breath. Comparison: February 15, 2020. Portable chest again demonstrates minimal lingula discoid atelectasis/scarring. Remaining heart, lungs, and bony thorax unremarkable.
== END 2021-01-01 12:07 | disposition home or self-care (01) ==
LOC: ED 10:53
DX: R50.9 Fever, unspecified (principal); R51.9 Headache, unspecified; R09.81 Nasal congestion; R53.81 Other malaise; R53.1 Weakness; Z20.828 Contact with and (suspected) exposure to other viral communicable diseases; E78.5 Hyperlipidemia, unspecified; E11.9 Type 2 diabetes mellitus without complications; Z79.899 Other long term (current) drug therapy
CPT/HCPCS: 36415; 71045; 80053; 85025; 99284